=== PATIENT | female | born 1990 | race Caucasian/White ===

== ENCOUNTER 2019-10-06 14:06 | Emergency (ER) | payer OTHER ==
[~2019-10-06] VITALS: Ht 160 cm; Wt 72.6 kg
[2019-10-06 14:10] VITALS: BP 155/83
--- NOTE | 2019-10-06 14:30 | NUR ---
PT [facility] FOR PRE-BOOK. PT ANXIOUS, C/O BEING HIGH ON METH. STATES SHE TOOK METH 3 DAYS AGO. STATES GENERALIZED PAIN 7/10, DENIES INJURY. HX OF METH ABUSE PMH: NONE NKA
--- NOTE | 2019-10-06 15:18 | NUR ---
Patient discharged with v/s stable. Written and verbal after care instructions given and explained. Patient verbalized understanding. Ambulatory with [facility]sieh [facility] in custody. All questions addressed prior to discharge. Advised to follow up with PMD.
[2019-10-06 15:21] VITALS: BP 127/57
== END 2019-10-06 15:18 ==
LOC: MED 14:06
DX: F15.90 Other stimulant use, unspecified, uncomplicated (principal); Z02.89 Encounter for other administrative examinations
CPT/HCPCS: 99283